=== PATIENT | female | born 1950 | race Caucasian/White ===

== ENCOUNTER 2021-12-17 09:28 | Emergency (ER) | payer OTHER, MEDICAID ==
[~2021-12-17] VITALS: Wt 76.7 kg
== END 2021-12-17 12:58 | disposition home or self-care (01) ==
LOC: ED 09:28
DX: S80.11XA Contusion of right lower leg, initial encounter (principal); Z88.0 Allergy status to penicillin; Z88.8 Allergy status to other drugs, medicaments and biological substances; W22.8XXA Striking against or struck by other objects, initial encounter; Y93.89 Activity, other specified; Y92.89 Other specified places as the place of occurrence of the external cause; Y99.8 Other external cause status